=== PATIENT | male | born 1980 | race Caucasian/White ===

== ENCOUNTER → 2016-09-30 | Day surgery (SDC) | payer OTHER ==
--- NOTE | 2016-09-28 13:57 | History & Physical Pre-Op ---
General Information and HPI History of Present Illness: patient presents for evaluation of an umbilical hernia. It has been there for a few years but has become more symptomatic in the past 6 months. Complains of periumbilical abdominal pain with sneezing and coughing. There is radiation of pain to his penis. he notes recent weight gain following orthopedic surgeries and debilitation. Allergies/Medications Allergies: Coded Allergies: MDX - Celecoxib (From CELEBREX) (03/12/11) MDX - Naproxen (NAPROXEN) (03/28/11) Past History Medical History Respiratory: obstructive sleep apnea Gastrointestinal: Crohn's disease, GERD Renal: nephrolithiasis Musculoskeletal: osteoporosis Endocrine: obesity Surgical History Pertinent Surgical History: arthroscopy (elbow, shoulder, wrist, knee) Past Family/Social History Psychosocial History Smoking Status: Former Smoker Review of Systems Review of Systems: Patient reports arthralgias/joint pain but reports no muscle aches, no muscle weakness, and no back pain. He reports no fatigue, no fever, no night sweats, no significant weight gain, no significant weight loss, and no exercise intolerance. He reports no abnormal moles, no jaundice, no hives, no eczema, and no rashes. He reports no swollen glands and no neck stiffness. He reports no cough, no wheezing, no shortness of breath, and no coughing up blood. He reports no chest pain, no arm pain on exertion, no shortness of breath when walking, no shortness of breath when lying down, no palpitations, and no known heart murmur. He reports normal appetite, no abdominal pain, no vomiting, no vomiting blood, no bloating, no diarrhea, no belching, no constipation, no regurgitation, and no rectal bleeding. He reports no incontinence, no difficulty urinating, no hematuria, and no increased frequency. Exam & Diagnostic Data Physical Exam: Patient is a 36-year-old male. Constitutional: General Appearance: healthy-appearing and obese. Level of Distress: no acute distress. Ambulation: ambulating normally. Head: Head: normocephalic and atraumatic. Neck: Neck: supple, trachea midline, no masses, and full range of motion. Thyroid: no enlargement or nodules and non-tender. Lymph Nodes: no cervical LAD, supraclavicular LAD, axillary LAD, or inguinal LAD. Cardiovascular: Heart Auscultation: normal S1 and S2; no murmurs, rubs, or gallops; and regular rate and rhythm. Lungs: Respiratory effort: no dyspnea. Percussion: no dullness, flatness, or hyperresonance. Auscultation: no wheezing, rales/crackles, or rhonchi and breath sounds normal, good air movement, and clear to auscultation. Back: Thoracolumbar Appearance: normal curvature. Abdomen: Inspection and Palpation: no tenderness, guarding, masses, rebound tenderness, or CVA tenderness and soft and non-distended. Bowel Sounds: normal. Liver: non-tender and no hepatomegaly. Spleen: non-tender and no splenomegaly. Hernia: periumbilical (nonreducible preperitoneal fat). Skin: Inspection and palpation: no rash, lesions, ulcer, induration, nodules, jaundice, or abnormal nevi and good turgor. Musculoskeletal:: Extremities: no cyanosis, edema, varicosities, or palpable cord. Motor Strength and Tone: normal tone and motor strength. Joints, Bones, and Muscles: no contractures, malalignment, tenderness, or bony abnormalities and normal movement of all extremities. Psychiatric: Insight: good judgement and insight. Mental Status: normal mood and affect and active and alert. Orientation: to time, place, and person. Memory: recent memory normal and remote memory normal Assessment/Plan Assessment/Plan: Obstructed umbilical hernia - recommend open repair plus or minus mesh depending on the size of the defect. Discussed the pathophysiology of umbilical hernia and the need for repair to prevent incarceration/ strangulation of bowel. Discussed the potential need for mesh placement depending on the size of the defect. Patient understands the perment nature of mesh. Discussed the risks of surgery including bleeding, infection and recurrence of the hernia. As Ranked By This Provider Problem List: 1. Umbilical hernia with obstruction, without gangrene
[~2016-09-30] VITALS: Ht 167.6 cm; Wt 104.3 kg
[~2016-09-30] MED LIST: OMEPRAZOLE40 M1 PO; PENTASA500 M1 PO
--- NOTE | 2016-09-30 13:40 | Operative Report ---
Operative/Inv Procedure Report Surgery Date: 09/30/16 Name of Procedure: Umbilical hernia repair with mesh Pre-Operative Diagnosis: Umbilical hernia Post-Operative Diagnosis: Same Estimated Blood Loss: scant Surgeon/Surgical Tech: HALEIGH BROWN,CHARO Darby/Ananda BEAULIEU Anesthesia: laryngeal mask airway Implants: 6.4 cm ventralex mesh Operative/Procedure Note Note: After consent he is brought to the operating room and laid supine. Gen. anesthesia was obtained and his abdomen was prepped and draped. The periumbilical tissues were infiltrated cocktail local anesthesia. A curvilinear inferiorly based incision was made sharply. We dissected through the subcutaneous tissues tissues bluntly. There was incarcerated fatty tissue. We circumvention dissected the umbilical stalk and transected with cautery. We were then able to expose the defect and herniated contents. There is a lot of preperitoneal fat around a wide based fascial defect. Using electrocautery we dissected down to the neck of the hernia and incised the fascial edges to get clean fascial margins. I was then able to reduce the contents area the resultant defect was 2.5-3 cm in greatest dimension. I elected to repair with mesh. Preperitoneal planes were then created circumferentially with blunt and cautery dissection. A 6.4 cm mesh was then placed into the cavity. It was unraveled below the defect. The fascia was then closed over the mesh was 0 Maxon suture while incorporating the anterior portion of it to keep it centered. The wound was irrigated with saline. The umbilical stalk re-created with 3-0 Vicryl. The incision closed with 4-0 Vicryl. Steri-Strips and sterile dressing applied. Sponge and needle counts are correct CC: MARTIR BROWN,JOHNIE Martinez
== END ==
LOC: STS 01:13
DX: K42.9 Umbilical hernia without obstruction or gangrene (principal); K50.90 Crohn's disease, unspecified, without complications; Z87.891 Personal history of nicotine dependence
CPT/HCPCS: J0131; J0690; J2250